=== PATIENT | male | born 1980 | race Caucasian/White ===

== ENCOUNTER 2016-06-27 09:57 | Emergency (ER) ==
--- NOTE | 2016-06-27 10:45 | PROVIDER DOCUMENTATION ---
HPI-Musculoskeletal Pain/Inj - GENERAL Chief Complaint: Extremity Pain Stated Complaint: RT LEG PAIN Time Seen by Provider: 06/27/16 10:13 Source: patient - HX OF PRESENT ILLNESS-MUSKULOSKELTAL Nature of Presenting Problem: 35 y/o M c/o R low back pain x 2 weeks. Pt states that pain radiates down his RLE and worse with walking/movement. Denies injury but reports onset of symptoms 2 days after playing football; he fell onto his R side during football. Denies any numbness/tingling, bowel/bladder dysfunction. States shooting pain that radiates from R low back to R lateral thigh. Review of Systems - Adult - REVIEW OF SYSTEMS - ADULT Constitutional: reports: no symptoms reported. denies: chills, fever Eyes: reports: no symptoms reported. denies: blurred vision, double vision Ears, Nose, Mouth & Throat: reports: no symptoms reported. denies: ear pain, nose pain Cardiovascular: reports: no symptoms reported. denies: chest pain, palpitations Respiratory: reports: no symptoms reported. denies: cough, shortness of breath Gastrointestinal: reports: no symptoms reported. denies: nausea, vomiting Genitourinary: reports: no symptoms reported. denies: dysuria, frequency Musculoskeletal: reports: see HPI, back pain. denies: joint pain, joint swelling, neck pain Integumentary: reports: no symptoms reported. denies: nail changes, rash Neurological: reports: no symptoms reported. denies: numbness, paresthesia Psychiatric: reports: no symptoms reported Endocrine: reports: no symptoms reported. denies: cold intolerance, heat intolerance Hematologic/Lymphatic: reports: no symptoms reported. denies: easy bruising, prolonged bleeding Allergic/Immunologic: reports: no symptoms reported All Other Systems: Reviewed and Negative Past History - Adult - PAST MEDICAL HISTORY-ADULT Review of Records: reports: Nursing Assessment Review, Medications Reviewed Major Childhood Illnesses: reports: denies history Cardiovascular: reports: denies history Respiratory: reports: asthma Gastrointestinal: reports: denies history Obstetrical/Gynecological: reports: denies history Genitourinary: reports: denies history Musculoskeletal: reports: denies history Neurological: reports: denies history Endocrine/Immune: reports: denies history Other Conditions: reports: denies history - PRIOR SURGERIES/PROCEDURES Surgical/Procedure History: reports: reviewed, not pertinent - PRIOR HOSPITALIZATIONS Prior Hospitalizations: reports: none - IMMUNIZATION STATUS Childhood Immunizations: UTD Flu Vaccine: See Nurse Assessment - FAMILY HISTORY Family History: reviewed, not pertinent - SOCIAL HISTORY Smoking: denies Physical Exam-Injury Related - Physical Exam-Injury Related Initial Vital Signs Reviewed: Yes General Appearance: alert, mild distress Eyes: pink conjunctivae Head, Ears, Nose, Mouth & Throat: normocephalic/atraumatic, moist mucous membranes Neck: normal inspection Respiratory: no respiratory distress Cardiovascular: normal peripheral pulses, regular rate, rhythm Peripheral Pulses: dorsalis-pedis (R): 1+, dorsalis-pedis (L): 1+ Back Exam: normal inspection, no vertebral tenderness, other (TTP R buttocks to lateral R thigh) Extremity: normal range of motion. negative: abnormal NV exam, pulse deficit Integumentary: normal color, warm/dry, blanching Neurologic: other (+ straight leg raise on RLE). negative: aphasia, motor weakness, sensory deficit Psych/Mental Status: normal mood/affect, normal thought content, normal thought process, oriented x 3 Progress - XRAY 1 XRAY Study: Lumbar Spine XRAY Interpretation: No fx or subluxation Departure - Departure Time of Disposition Order: 11:21 DIAGNOSIS: Low back sprain Qualifiers: Encounter type: initial encounter Qualified Code(s): S33.9XXA - Sprain of unspecified parts of lumbar spine and pelvis, initial encounter Disposition: HOME 01 Certified Medical Emergency: Emergent Condition: Stable Additional Instructions: Take medications as directed. Heat often, at least 3x daily. Limited activity x 10 days, then simple stretching. ED Follow Up Instructions: You have been treated by a care provider in the Emergency Department. These instructions are being provided to you so you can have an understanding of how to care for yourself upon discharge. Upon discharge from the Emergency Department, you are responsible for making arrangements for follow-up care by a physician of your choice. Take all prescribed medications as directed. Return to the Emergency Department immediately for any new or worsening symptoms. You may call the Physician Referral phone number at [phone] to obtain a list of Physicians who are taking new patients. Prescriptions: Ibuprofen [Motrin] 800 mg PO Q8H PRN PRN #30 tablet PRN Reason: inflammation Famotidine [Pepcid] 20 mg PO DAILY #20 tablet Methocarbamol [Robaxin] 500 mg PO BID #30 tablet Referrals: None,PCP [Primary Care Provider] - Albaro Medina MD [STAFF PHYSICIAN] - Forms: Return to School/Parent Work Instructions: Back Pain, Adult, [id number] Attestation - Physician/ ABEL Attestation Patient care was provided by Advanced Practice Provider:: Yes Advanced Practice Provider:: Roxana Moyer Advanced Practice Provider documentation review:: The Mid-level provider documentation, treatment plan and medical decision making was reviewed by the physician who agrees with all treatment and medical decision making by the MLP.
[2016-06-27] MEDS ORDERED: TORADOL IM ONE (11:18)
[2016-06-27] MEDS ORDERED: NORFLEX IM ONE (11:18)
--- NOTE | 2016-06-27 11:44 | Diag Imaging Result Document ---
PROCEDURE NAME: LUMBAR SPINE - 06/27/2016 PLAIN RADIOGRAPH OF THE LUMBAR SPINE, 6 VIEWS: COMPARISON: None available. FINDINGS: There is no discrete fracture, subluxation, or intrinsic osseous lesion. The surrounding soft tissues are grossly unremarkable. IMPRESSION: Essentially unremarkable plain radiograph.
[2016-06-27 11:45] VITALS: BP 118/63
== END 2016-06-27 11:42 | disposition home or self-care (01) ==
LOC: ED 09:57
DX: S33.9XXA Sprain of unspecified parts of lumbar spine and pelvis, initial encounter (principal); M54.5 Low back pain; M79.651 Pain in right thigh; M79.1 Myalgia; W19.XXXA Unspecified fall, initial encounter
CPT/HCPCS: 72110; J1885; J2360